=== PATIENT | male | born 1935 | race Caucasian/White ===

== ENCOUNTER 2019-12-10 07:08 | Emergency (ER) | payer OTHER ==
[~2019-12-10] VITALS: Ht 177.8 cm; Wt 86.2 kg
[2019-12-10 07:37] LABS: Basophils # (auto) 0.1 10 ^3/uL (0-0.2); Basophils % (auto) 0.6 % (0.0-2.0); Eosinophils # (auto) 0.1 10 ^3/uL (0-0.8); Eosinophils % (auto) 1.6 % (0.0-7.0); Hematocrit 40.8 % (41.0-53.0); Hemoglobin 14.3 g/dL (13.5-17.5); Lymphocytes # (auto) 1.8 10 ^3/uL (0.4-5.4); Lymphocytes % (auto) 19.7 % (10.0-50.0); Mean Corpuscular Hemoglobin 31.5 pg (28.0-32.0); Mean Corpuscular Volume 89.8 fL (80.0-100.0); Monocytes # (auto) 0.7 10 ^3/uL (0-1.3); Monocytes % (auto) 7.3 % (0.0-12.0); Neutrophils # (auto) 6.5 10 ^3/uL (1.6-8.6); Neutrophils % (auto) 70.8 % (37.0-80.0); Platelet Count (auto) 173 10^3/uL (140-450); Red Blood Cells 4.55 10^6/uL (4.5-5.90); Red Cell Distribution Width 13.8 % (11.8-14.3); White Blood Cell 9.2 10^3/uL (4.4-10.8)
[2019-12-10] MEDS ORDERED: SODIUM CHLORIDE 0.9% 500 ML IV ONE (07:45)
[2019-12-10] MEDS ORDERED: dilTIAZem 25 MG/5 ML VIAL IV ONE (07:45)
[2019-12-10 07:58] LABS: Blood Alcohol < 3.0 mg/dL (0-5); Magnesium 1.9 mg/dL (1.6-2.6)
[2019-12-10 08:01] LABS: Albumin 3.5 g/dL (3.4-5.0); BUN/Creatinine Ratio 14.3; Calcium 8.5 mg/dL (8.5-10.1)
[2019-12-10 08:04] LABS: INR 1.16 (0.9-1.15); Partial Thromboplastin Time 31.2 sec (23.0-31.2)
[2019-12-10 08:06] LABS: Bilirubin, Total 0.9 mg/dL (0.2-1.0); Total Protein 7.3 g/dL (6.4-8.2)
[2019-12-10 08:16] LABS: Urine Bacteria NONE SEEN /hpf (None Seen); Urine Blood Negative /uL (Negative); Urine Mucus FEW (None Seen); Urine WBC <1 /hpf (0 - 3)
[2019-12-10 08:28] LABS: Alcohol, Urine < 3.0 mg/dL (0-10); Amphetamine Screen, Urine NEGATIVE (NEGATIVE); Barbiturate Scree,Urine NEGATIVE (NEGATIVE); Benzodiazephine Screen, Urine POSITIVE (NEGATIVE); Cannabinoid Screen, Urine NEGATIVE (NEGATIVE); Cocaine Screen, Urine NEGATIVE (NEGATIVE); Opiate Scree,Urine NEGATIVE (NEGATIVE); Phencyclidine Screen, Urine NEGATIVE (NEGATIVE)
[2019-12-10] MEDS ORDERED: dilTIAZem HCL 60 MG TAB PO ONE ×2 (11:00)
[2019-12-10 14:01] VITALS: BP 131/82
== END 2019-12-10 14:43 | disposition short-term general hospital (02) ==
LOC: EDUNIT# 07:08 → ER 07:08 → EDBD 07:08 → ER 14:43
DX: F03.90 Unspecified dementia, unspecified severity, without behavioral disturbance, psychotic disturbance, mood disturbance, and anxiety (principal); R41.82 Altered mental status, unspecified; E11.9 Type 2 diabetes mellitus without complications; I10 Essential (primary) hypertension; I48.91 Unspecified atrial fibrillation; Z20.828 Contact with and (suspected) exposure to other viral communicable diseases
CPT/HCPCS: 36415; 70450; 71045; 73502; 80053; 80307; 80320; 81001; 82962; 83605; 83735; 84484; 85025; 85610; 85730; 87040; 87426; 93005; 96361; 96374; 99285; C9803; J7040; U0003